=== PATIENT | female | born 1995 | race Caucasian/White ===

== ENCOUNTER → 2016-05-13 | Outpatient (CLI) | payer BC ==
[~2016-05-13] MED LIST: PRED20TA PO; VLT/75 PO; ZLF/50 PO
--- NOTE | 2016-05-13 18:28 | DIAGNOSTIC IMAGING REPORT ---
LUMBAR SPINE MRI HISTORY: Low back pain. LUMBAR RADICULOPATHY TECHNIQUE: Multiplanar multisequence MRI of the lumbar spine was performed without the use of contrast. COMPARISON: None. FINDINGS: For the purpose of the report the L5-S1 disc space will be located on axial image 23 of 25. Alignment and curvature are intact. No fracture or subluxation. Disc spaces are preserved. The conus terminates at the L1 level. Paraspinal soft tissues are unremarkable. L1-L2: No significant central canal or neural foraminal narrowing. L2-L3: No significant central canal or neural foraminal narrowing. L3-L4: No significant central canal or neural foraminal narrowing. L4-L5: Tiny broad-based posterior disc bulge without significant central canal or neural foraminal narrowing. L5-S1: No significant central canal or neural foraminal narrowing. IMPRESSION: 1. No disc herniations. 2. No significant central canal or neural foraminal narrowing. 3. Tiny broad-based posterior disc bulge at L4-L5. 4. No fracture or subluxation. Electronically signed by: Mike Lal M.D. 05/13/2016 6:26 PM Dictated Date/Time: 05/13/2016 6:22 PM
== END | disposition home or self-care (01) ==
LOC: C.MRI 17:40
PROVIDERS: ATTEND Family Medicine
DX: M54.16 Radiculopathy, lumbar region (principal)

== ENCOUNTER → 2016-08-20 | Outpatient (CLI) | payer BC ==
[~2016-08-20] MED LIST changes: +PRENTAB26 PO
[2016-08-20 18:25] LABS: URINE APPEARANCE CLEAR (CLEAR); URINE BILIRUBIN NEG (NEG); URINE COLOR YELLOW; URINE NITRITE NEG (NEG); URINE SPECIFIC GRAVITY 1.023 (1.000-1.030); UROBILINOGEN NEG (NEG)
[2016-08-20 18:33] LABS: MANUAL MICROSCOPIC REQUIRED? NO; REVIEW REQ? NO
== END | disposition home or self-care (01) ==
LOC: C.LABSPEC 17:42
PROVIDERS: ATTEND Obstetrics & Gynecology
DX: Z34.81 Encounter for supervision of other normal pregnancy, first trimester (principal)

== ENCOUNTER → 2016-08-29 | Outpatient (CLI) | payer BC ==
[2016-08-29 16:35] LABS: BASO % 0.1 %; BASO ABS # 0.01 K/uL (0-0.2); COMPLETE YES; EOS % 1.7 %; HEMATOCRIT 35.8 % (37-47); IG% 0.3 %; LYMPH % 33.9 %; LYMPH ABS # 2.64 K/uL (1.2-3.4); MEAN CELL VOLUME 81.9 fL (80-100); MEAN CORPUSCULAR HEMOGLOBIN 27.9 pg (25-34); MEAN CORPUSCULAR HGB CONC 34.1 g/dl (32-36); MEAN PLATELET VOLUME 11.1 fL (7.4-10.4); MONO % 7.2 %; NEUT % 56.8 %; PLATELET COUNT 278 K/uL (130-400); RED BLOOD COUNT 4.37 M/uL (4.2-5.4); WHITE BLOOD COUNT 7.79 K/uL (4.8-10.8)
[2016-09-01 03:10] LABS: CHLAMYDIA TRACH RNA*** NOT DETECTED (NOT DETECTED); GC (NEIS GONORRHOEAE)RNA** NOT DETECTED (NOT DETECTED)
== END | disposition home or self-care (01) ==
LOC: C.LAB1850 14:52
PROVIDERS: ATTEND Obstetrics & Gynecology
DX: Z34.81 Encounter for supervision of other normal pregnancy, first trimester (principal)

== ENCOUNTER → 2016-10-17 | Outpatient (CLI) | payer BC ==
[2016-10-17 18:34] LABS: GTGD 50 Grams
[2016-10-22 14:51] LABS: AFP CONCENTRATION 42.8 NG/ML; AFP MULTIPLE OF MEDIAN 1.29; AFPTS GESTATIONAL AGE 16.3 WEEKS; AFPTS INSULIN DEP DIABETIC? NO; AFPTS MATERNAL WT 140 LBS; ALPHA-FETOPROTEIN RACE HISPANIC=H; ESTRIOL MULTIPLE OF MEDIAN 0.99; HISTORY OF NTD NO; INHIBIN A 177 PG/ML; INHIBIN A MOM 1.06; REPEAT SAMPLE? NO; hCG MULTIPLE OF MEDIAN 1.47
== END | disposition home or self-care (01) ==
LOC: C.LAB1850 15:53
PROVIDERS: ATTEND Obstetrics & Gynecology
DX: Z34.82 Encounter for supervision of other normal pregnancy, second trimester (principal)

== ENCOUNTER → 2016-12-31 | Outpatient (CLI) | payer BC ==
[~2016-12-31] MED LIST changes: -PRENTAB26 PO
[2016-12-31 17:24] LABS: HEMATOCRIT 32.4 % (37-47)
[2016-12-31 18:06] LABS: GTGD 50 Grams
[2016-12-31 18:43] LABS: URINE APPEARANCE CLEAR (CLEAR); URINE BILIRUBIN NEG (NEG); URINE COLOR YELLOW; URINE EPITHELIAL CELL AUTO >30 /lpf (0-5); URINE NITRITE NEG (NEG); URINE SPECIFIC GRAVITY 1.011 (1.000-1.030); UROBILINOGEN NEG (NEG)
[2016-12-31 18:50] LABS: MANUAL MICROSCOPIC REQUIRED? NO; REVIEW REQ? NO
== END | disposition home or self-care (01) ==
LOC: C.LAB1850 15:54
PROVIDERS: ATTEND Obstetrics & Gynecology
DX: Z34.83 Encounter for supervision of other normal pregnancy, third trimester (principal)

== ENCOUNTER 2017-02-17 20:02 | Outpatient (CLI) | payer BC ==
[~2017-02-17] VITALS: Ht 166.4 cm; Wt 80.9 kg
[2017-02-17] MEDS ORDERED: PRENTAB26 PO (20:43)
[2017-02-17 20:44] VITALS: Ht 166.4 cm; Wt 80.9 kg
== END 2017-02-17 20:55 | disposition home or self-care (01) ==
LOC: C.LD 20:02 → C.OPB 20:02
PROVIDERS: ATTEND Obstetrics & Gynecology
DX: O26.893 Other specified pregnancy related conditions, third trimester (principal); Z3A.34 34 weeks gestation of pregnancy

== ENCOUNTER → 2017-02-28 | Outpatient (CLI) | payer BC ==
[~2017-02-28] MED LIST changes: -PRED20TA PO; +PRENTAB26 PO; -VLT/75 PO; -ZLF/50 PO
== END | disposition home or self-care (01) ==
LOC: C.LABSPEC 16:06
PROVIDERS: ATTEND Obstetrics & Gynecology
DX: Z34.83 Encounter for supervision of other normal pregnancy, third trimester (principal)

== ENCOUNTER 2017-03-23 02:56 | Inpatient (IN) | payer BC ==
[~2017-03-23] VITALS: Ht 165.1 cm; Wt 87.3 kg
[2017-03-23] MEDS ORDERED: LACTATED RINGER'S 1000ML 1,000 ML IV SCH ×2 (03:30→08:01)
[2017-03-23 03:37] VITALS: Ht 165.1 cm; Wt 87.3 kg
[2017-03-23] MEDS ORDERED: EpHEDrine SULFATE INJ 50 MG/ML AMP ONE (03:45)
[2017-03-23] MEDS ORDERED: FENTANYL 2MCG/ML ROPIV 1.25MG/ML 100ML BAG EPI ONE (03:45)
[2017-03-23] MEDS ORDERED: BUPIVACAINE 0.25% 30 ML VIAL ONE (03:45)
[2017-03-23] MEDS ORDERED: FENTANYL CITRATE INJ 50 MCG/1 ML 2 ML VIAL ONE (03:46)
[2017-03-23] MEDS: LACTATED RINGER'S 1000ML 1,000 ML IV PRN ×2 (03:54→04:35)
[2017-03-23 04:12] LABS: HEMATOCRIT 32.8 % (37-47); MEAN CELL VOLUME 77.7 fL (80-100); MEAN CORPUSCULAR HEMOGLOBIN 24.9 pg (25-34); MEAN PLATELET VOLUME 10.3 fL (7.4-10.4); PLATELET COUNT 270 K/uL (130-400); RED BLOOD COUNT 4.22 M/uL (4.2-5.4); WHITE BLOOD COUNT 8.06 K/uL (4.8-10.8)
[2017-03-23] MEDS ORDERED: NALOXONE HCL INJ 1 MG in SODIUM CHLORIDE 0.9% 1000ML 1,000 ML IV PRN (04:53)
[2017-03-23] MEDS ORDERED: LACTATED RINGER'S 1000ML 500 ML IV PRN (04:53)
[2017-03-23] MEDS ORDERED: NALBUPHINE HCL INJ 10 MG/ML AMP IV PRN (05:00)
[2017-03-23] MEDS ORDERED: NALOXONE HCL INJ 0.4 MG/1 ML VIAL/CARP IV PRN (05:00)
[2017-03-23] MEDS ORDERED: ONDANSETRON INJ 2 MG/ML 2 ML VIAL IV PRN (05:00)
[2017-03-23] MEDS ORDERED: EpHEDrine SULFATE INJ 50 MG/ML AMP IV PRN (05:00)
[2017-03-23] MEDS ORDERED: PROMETHAZINE HCL INJ 6.25 MG in SODIUM CHLORIDE 0.9% 50ML 50 ML IV PRN (05:00)
[2017-03-23] MEDS ORDERED: DiphenhydrAMINE HCL 50 MG/ML VIAL IV PRN (05:00)
[2017-03-23] MEDS: FENTANYL 2MCG/ML ROPIV 1.25MG/ML 100ML BAG EPI PRN ×2 (05:59→06:53)
[2017-03-23] MEDS ORDERED: OXYTOCIN 30 UNITS/500ML NSS IV ONE (07:19)
[2017-03-23] MEDS ORDERED: BENZOCAINE 20% AER SPR 82.5 GM CAN EXT PRN (08:15)
[2017-03-23] MEDS ORDERED: DIPHTHERIA/TETANUS/PERTUSSIS 0.5 ML SYR/VIAL IM. ONE (08:15)
[2017-03-23] MEDS ORDERED: SUPERCREAM 0.870 % 15GM JAR EXT PRN (08:15)
[2017-03-23] MEDS ORDERED: HYDROCORTISONE ACETATE 25 MG SUPP PR PRN (08:15)
[2017-03-23] MEDS ORDERED: ACETAMINOPHEN 325 MG TAB PO PRN (08:15)
[2017-03-23] MEDS ORDERED: OXYTOCIN 30 UNITS/500ML NSS IV PRN (08:15)
[2017-03-23] MEDS ORDERED: LANOLIN OINT EXT PRN ×2 (08:15)
--- NOTE | 2017-03-23 08:29 | DELIVERY SUMMARY ---
DATE OF OPERATION: 03/23/2017 VAGINAL DELIVERY NOTE PREOPERATIVE DIAGNOSES: 1. Booth intrauterine at term. 2. Spontaneous onset of labor. POSTOPERATIVE DIAGNOSES: Same. PROCEDURE PERFORMED: Spontaneous vaginal delivery, repair of first-degree perineal laceration. SURGEON: Mago Zendejas MD. OCCUPATIONAL THERAPIST AIDE: None. ESTIMATED BLOOD LOSS: 400. FINDINGS: Placenta spontaneous and intact with a 3-vessel cord. SPECIMENS: Cord blood and placenta for hold. COMPLICATIONS: None. DISPOSITION: Stable to the labor and delivery room. DESCRIPTION OF PROCEDURE: Carola is a 22-year-old, 2, para 1, who presented in active labor with spontaneous rupture of membranes. She was admitted, provided with an epidural for pain management and managed expectantly through her labor. I was called when the patient reached complete dilation with an urge to push. She was pushed through her second stage of labor, which was relatively brief, after which I gowned and gloved for delivery. The patient did deliver a viable male infant in an occiput anterior position with no difficulty. The was placed on the maternal abdomen. The cord was noted to be quite long with at least one true knot. The cord was doubly clamped and cut by the father by the father of the baby. The infant was taken to the warmer. The placenta then delivered spontaneously. There was noted to be an abrasion at the posterior fourchette initially. As this was hemostatic, I was not planning to repair it; however, after looking at it, it appeared that it would be more cosmetically appealing if it were repaired. Therefore, I did call this a first-degree laceration and apply an interrupted suture of 3-0 Vicryl at the skin of the perineum to reapproximate this for cosmesis. There were no cervical, vaginal, or other perineal lacerations requiring repair, and the mother and were in stable condition having tolerated delivery well. I attest to the content of the Intraoperative Record and any orders documented therein. Any exception s are noted below.
--- NOTE | 2017-03-23 08:42 | Anesthesia Procedure Note ---
Anesthesia Epidural Removal Nt Date & Time Mar 23, 2017 at 08:42 Vital Signs Pain Intensity: 0.0 Notes Mental Status: alert / awake / arousable, participated in evaluation Nausea / Vomiting: adequately controlled Pain: adequately controlled Airway Patency, RR, SpO2: stable & adequate BP & HR: stable & adequate Hydration State: stable & adequate Neuraxial Anesthesia: was administered Anesthetic Complications: no major complications apparent, pt satisfied with anesthetic care Epidural: removed without complications, with tip intact
[2017-03-23 11:30] VITALS: BP 112/73; PULSE 89; TEMP 36.9; O2SAT 97
[2017-03-23 15:55] VITALS: BP 110/68; PULSE 83; TEMP 36.7; O2SAT 97
[2017-03-23] MEDS: IBUPROFEN 600 MG TAB PO PRN ×2 (16:03→19:54)
[2017-03-23 19:40] VITALS: BP 114/73; PULSE 84; TEMP 36.4; O2SAT 98
[2017-03-23] MEDS: DOCUSATE SODIUM 100 MG CAP PO SCH (19:54)
[2017-03-23] MEDS: OXYCODONE/ACETAMINOPHEN 5-325 TAB PO PRN (21:33)
[2017-03-24] VITALS: BP 119/69; PULSE 84; TEMP 36.5; O2SAT 96
[2017-03-24 04:15] VITALS: BP 103/70; PULSE 76; TEMP 36.8; O2SAT 97
[2017-03-24 07:07] LABS: HEMATOCRIT 28.2 % (37-47)
--- NOTE | 2017-03-24 07:09 | Progress Note ---
Subjective Mar 24, 2017. Subjective conversation w/ patient, physical exam, chart review, lab review Ambulation: ambulating normally Voiding: no voiding problems Passing Gas: Yes Diet Tolerance: Regular Diet Lochia: Moderate Feeding Type: Breast Feeding Pain: controlled Review of Systems Constitutional: No fever, No chills Cardiac: No chest pain Abdomen: No nausea, No vomiting Female : No dysuria Objective Vital Signs Date Time Temp Pulse Resp B/P (MAP) Pulse Ox O2 Delivery O2 Flow Rate FiO2 03/24/17 04:15 36.8 76 16 103/70 (81) 97 Room Air 03/24/17 00:00 96 Room Air 03/24/17 00:00 36.5 84 20 119/69 (86) 96 Room Air 03/23/17 19:40 36.4 84 18 114/73 (87) 98 Room Air 03/23/17 15:55 97 Room Air 03/23/17 15:55 36.7 83 18 110/68 (82) 97 Room Air 03/23/17 11:30 36.9 89 20 112/73 (86) 97 Room Air 03/23/17 11:30 97 Room Air Physical Exam General Appearance: WELL-APPEARING, WD/WN, NO APPARENT DISTRESS Respiratory/Chest: lungs clear, normal breath sounds, no respiratory distress Cardiovascular: regular rate, rhythm, no gallop, no JVD Abdomen: normal bowel sounds, soft Fundus: Firm, Tender (appropriately tender), Relation to Umbilicus (U at level of Umb) Extremities: normal range of motion, normal inspection, no pedal edema Laboratory Results Last 24 Hours Test 03/24/17 06:33 Assessment and Plan Day#: 1 Continue Routine Care: O - / GBS - / RI Hbg 10.5, today 8.9. Pt's pain is controlled Encourage ambulation, , continue motrin/tylenol Continue routine post care TATIANA RUTH PGY 1 FMR Resident Physician Supervision Note: I interviewed and examined the patient. Discussed with Dr. Ruth and agree with findings and plan as documented in the note. Any exceptions or clarifications are listed here: [None] Documented By: Mago Zendejas Resident Tracking Resident Involvement: Resident Care Provided Care Provided: OB Delivery
[2017-03-24 07:16] VITALS: BP 106/64; PULSE 80; TEMP 36.6; O2SAT 97
[2017-03-24] MEDS: IBUPROFEN 600 MG TAB PO PRN ×2 (09:13→20:07)
[2017-03-24] MEDS: PRENATAL VITAMIN TAB PO SCH (09:13)
[2017-03-24] MEDS: DOCUSATE SODIUM 100 MG CAP PO SCH ×2 (09:13→20:07)
[2017-03-24] MEDS: OXYCODONE/ACETAMINOPHEN 5-325 TAB PO PRN ×2 (10:26→22:01)
[2017-03-24 15:15] VITALS: BP 113/75; PULSE 79; TEMP 36.9
[2017-03-24] MEDS ORDERED: GUAIFENESIN SUGAR FREE 100 MG/5 ML UDC PO PRN (19:45)
[2017-03-24 22:27] LABS: INFLUENZA A PCR Neg for Influ A (NEG); INFLUENZA B PCR Neg for Influ B (NEG)
[2017-03-25 00:06] VITALS: BP 115/79; PULSE 76; TEMP 36.7
[2017-03-25] MEDS: PRENATAL VITAMIN TAB PO SCH (07:14)
[2017-03-25] MEDS: DOCUSATE SODIUM 100 MG CAP PO SCH (07:14)
[2017-03-25] MEDS: IBUPROFEN 600 MG TAB PO PRN ×2 (07:15→11:38)
[2017-03-25 07:30] VITALS: BP 114/76; PULSE 82; TEMP 36.6; O2SAT 96
--- NOTE | 2017-03-25 07:48 | Progress Note ---
Subjective Mar 25, 2017. Subjective conversation w/ patient, physical exam, chart review, lab review Ambulation: ambulating normally Voiding: no voiding problems Passing Gas: Yes Diet Tolerance: Regular Diet Lochia: Moderate Feeding Type: Breast Feeding Pain: controlled Review of Systems Respiratory: No shortness of breath, No dyspnea on exertion Cardiac: No chest pain Abdomen: No nausea, No vomiting Female : No dysuria Objective Vital Signs Date Time Temp Pulse Resp B/P (MAP) Pulse Ox O2 Delivery O2 Flow Rate FiO2 03/25/17 00:09 Room Air 03/25/17 00:06 36.7 76 18 115/79 (91) Room Air 03/24/17 15:15 Room Air 03/24/17 15:15 36.9 79 18 113/75 (88) Room Air 03/24/17 10:04 Room Air Physical Exam General Appearance: WELL-APPEARING, WD/WN, NO APPARENT DISTRESS Respiratory/Chest: lungs clear, normal breath sounds, no respiratory distress Cardiovascular: regular rate, rhythm, no gallop, no murmur Abdomen: normal bowel sounds, soft Fundus: Firm, Tender (appropriately tender), Relation to Umbilicus (1 below U) Extremities: non-tender, normal inspection, no pedal edema Laboratory Results Last 24 Hours Test 03/24/17 20:05 Influenza Type A (RT-PCR) Neg for Influ A Influenza Type A Antigen Neg for Influ A Influenza Type B Antigen Neg for Influ B Influenza Type B (RT-PCR) Neg for Influ B Assessment and Plan Day#: 2 Continue Routine Care: O - / GBS - / RI Hbg 10.5, yesterday 8.9. Pt's pain is controlled Encourage ambulation, , continue motrin/tylenol Continue routine post care. Anticipate discharge today. TATIANA RUTH PGY 1 FMR Resident Physician Supervision Note: I was present with Dr. Ruth during the history and exam. I discussed the case with the resident and agree with the findings and plan as documented in the note. Any exceptions or clarifications are listed here: PPD#2, doing well. Discharge home today. Documented By: Loretta Zepeda Resident Tracking Resident Involvement: Resident Care Provided Care Provided: OB Delivery
--- NOTE | 2017-03-25 07:49 | Discharge Instructions ---
Discharge Instructions Date of Service Mar 25, 2017. Admission Reason for Admission: LABOR Discharge Discharge Diagnosis / Problem: Spontaneous vaginal delivery Discharge Goals Goal(s): Routine recovery after delivery Medications Continue Dispensed Medications: supercream, dermaplast, tucks, lansinoh Activity Recommendations Activity Limitations: per Instructions/Follow-up section . Instructions / Follow-Up Instructions / Follow-Up ACTIVITY RECOMMENDATIONS: * Gradual return to full activity over the next 2-3 weeks. * No lifting - nothing heavier than baby over the next 2-3 weeks. * Do not engage in vigorous exercise, sexual activity or sports until cleared by your physician. * Do not drive or operate any motorized equipment until cleared by your physician. * You may shower/bathe daily. MEDICATIONS: For discomfort or pain, you may use Acetaminophen (Tylenol), Ibuprofen (Advil), or Naproxen (Aleve) following the package directions. For constipation you may use Colace following the package directions. BREAST CARE: If you are not breast feeding: * Wear a supportive bra 24 hours a day for one to two weeks. * Avoid stimulating your breasts and nipples as much as possible during the first few weeks after delivery. * When taking a shower, have the warm water hit your back, not breasts. * When your breasts feel full, apply ice packs. Usually three to four times a day helps ease the discomfort. * Take a mild pain medication (Tylenol / Motrin) when you are uncomfortable. If breast feeding: * Use breast milk to lubricate nipples. Lansinoh cream may be used for sore nipples. You do not need to remove cream prior to breast feeding. If using a different brand of cream, check the label for directions regarding removal of cream prior to nursing. * Wear a supportive bra. * If having problems with breasts or breast feeding, call a bilingual sales consultant or your health care provider. EPISIOTOMY CARE: After delivery, if you have an episiotomy (stitches), the following steps will ease discomfort and aid healing. * For the first 24 hours after delivery, place ice packs next to your episiotomy to help reduce swelling. * After the first 24 hour-period, sitz baths, either portable or in the tub, are suggested. A shower with a shower arm sprayed over the episiotomy may be comforting. * Nuvia care should be done after each voiding and bowel movement. Squirt warm water from a plastic bottle over the perineum (region of the body between the anus and urinary opening) and pat dry. * Use Dermoplast to ease discomfort. Shake container. [place] directly over the episiotomy. Place a Tucks on a clean sanitary pad next to your episiotomy. SPECIAL CARE INSTRUCTIONS: When you are discharged from the hospital, it is important for you to follow the instructions listed below: * During the first week at home, you should be able to care for yourself and your baby. In addition, the usual light household activities are encouraged. * Limit your activities to the way you feel. Do not try to clean the house or move furniture. Be sensible. * If you actively engage in sports and have done so up until the time of your delivery, you may resume these activities as soon as you feel able. This may take up to one month or even longer. Use good judgment. * Continue to take your vitamins for at least six weeks after the of your baby. * Your diet need not be limited unless you were on a special diet before your delivery. Breast-feeding mothers need around 2500 calories per day and at least 64-80 ounces of fluid per day (8 to 10 glasses). * You should eat foods from the four major food groups. Crash diets or fad diets are to be avoided. Eating lean meats, fresh fruits and vegetables, low-fat dairy products, high fiber foods and a regular exercise program, will help you get back to your pre- weight without putting your health at risk. * Constipation is sometimes a problem after delivery. Take a mild laxative as needed. If breast feeding, Milk of Magnesia is acceptable to use. You may use a suppository or Fleets enema if no episiotomy. * A daily shower or tub bath is suggested. Be sure to thoroughly and gently dry the perineum. * A bloody vaginal discharge will usually continue until around four weeks post . A small amount of bleeding may continue for as long as six weeks. Vaginal discharge changes from the bright red bleeding after delivery to pink then brownish and finally yellowish-pink before becoming white and disappearing. * Bleeding may increase with activity. Your first period may come in 4-8 weeks. If you are breast feeding, your period may be delayed even longer. * [place] (sex) can begin whenever both you and your partner feel comfortable and do not have any form of genital infection. It is recommended that you wait at least six weeks for internal and external healing to occur. If you have questions, please talk to your health care practitioner. A condom should be used to prevent infection and . * Foreplay, gentle intercourse and lubrication is very important the first several times to prevent pain. A water-based lubricant such as K-Y jelly or Astroglide may be used. * If you have RH negative blood and your baby is RH positive, you will receive RHOGAM by injection prior to discharge. The nurse will give you a card to keep with you that has the date and place that you received RHOGAM after delivery. * During your care, you had a Rubella screen done to check for the presence of rubella antibodies in your blood. If your test was negative, you will receive a Rubella vaccine prior to discharge. This vaccine may cause a fever, soreness at the injection site and flu-like symptoms. If these symptoms persist, notify your health care practitioner. is not advised for one month after a Rubella vaccine. * Verbalizes understanding of car seat law as reviewed with patient nursing. * Car Seat hand-out given and reviewed with patient by nursing. * Shaken baby information reviewed with patient by nursing. Call you doctor if: * Heavy bleeding (saturating several pads an hour) or passing clots the size of your fist. * A fever >101 degrees F (38.3 degrees C) on two occasions four hours apart and /or chills. * Unusual pain in the pelvic or vaginal areas. * "Baby Blues" lasting longer than two weeks. If you have any questions or concerns, call your health care practitioner at . FOLLOW UP VISIT: * Please call the office at to schedule a 6 week examination. It is important you keep this appointment. It is important for you to make arrangements for either yearly or twice yearly check-ups thereafter. Current Hospital Diet Patient's current hospital diet: Regular OB Diet Discharge Diet Recommended Diet: Regular Diet Pending Studies Studies pending at discharge: no Medical Emergencies . Who to Call and When: Medical Emergencies: If at any time you feel your situation is an emergency, please call 911 immediately. . Non-Emergent Contact Non-Emergency issues call your: Primary Care Provider . . "Provider Documentation" section prepared by Poonam Ruth. . VTE Core Measure Inpt VTE Proph given/why not?: Treatment not indicated
[2017-03-25 12:40] VITALS: BP_DIAS 76; PULSE 82; TEMP 36.6
== END 2017-03-25 12:40 | disposition home or self-care (01) | DRG 775 ==
LOC: C.LD 02:56 → C.OPB 02:56 → C.LD 03:31 → C.OBG 11:04
PROVIDERS: ADMIT Obstetrics & Gynecology; ATTEND Obstetrics & Gynecology
PROC: 0HQ9XZZ Repair Perineum Skin, External Approach (ICD-10-PCS; principal; 2017-03-23)
PROC: 10E0XZZ Delivery of Products of Conception, External Approach (ICD-10-PCS; principal; 2017-03-23)
DX: O70.0 First degree perineal laceration during delivery (principal); Z37.0 Single live birth; Z3A.39 39 weeks gestation of pregnancy

== ENCOUNTER 2024-06-03 04:12 | Inpatient (IN) ==
[2024-06-03] MEDS ORDERED: LIDOCAINE 1% LOCAL 20 ML VIAL INFIL PRN (04:45)
--- NOTE | 2024-06-03 04:55 | History & Physical Report ---
Date of Service June 03, 2024 Assessment & Plan (1) Insulin controlled gestational diabetes mellitus (GDM) during : Plan: IUP at 36 4/7 weeks in active labor but ctns only every 7-10 minutes with variables with each contraction will get IV access and hydrate and do position changes to alleviate the variables prior to AROM she is requesting epidural analgesia anticipating vaginal if baby tolerates contractions History of Present Illness Primary Care Provider: Ross Molina Patient is a 29 yo female EDC 07/02/24 who presents at 36 4/7 weeks with regular contractions since 1700 yesterday. contractions are now every 6-7 minutes and moderated. no bloody show or SPROM. complicated by GDM just started insulin 2 weeks ago. GBS - negative. testing has been reassuring. Allergies Allergy/AdvReac Type Severity Reaction Status Date / Time pollen extracts Allergy Intermediate Verified 05/31/24 14:25 Home Medications Medication Instructions Recorded Confirmed Type ondansetron HCl 4 mg tablet 4 mg PO Q6H PRN nausea and 11/17/23 05/31/24 Rx vomiting #30 tabs acetone (urine) test (Ketone Urine #50 ea 12/02/23 05/31/24 Rx Test strips) blood sugar diagnostic (OneTouch #150 ea 12/02/23 05/31/24 Rx Verio test strips) blood-glucose meter (OneTouch #1 ea 12/02/23 05/31/24 Rx Verio Reflect Meter) lancets 33 gauge (OneTouch Delica #150 ea 12/02/23 05/31/24 Rx Plus Lancet) ondansetron 4 mg disintegrating 4 mg PO Q6H PRN nausea and 03/27/24 05/31/24 Rx tablet vomiting #15 tabs pen needle, diabetic 32 gauge x #50 ea 05/21/24 05/31/24 Rx 5/32" (BD Ultra-Fine Candy Pen Needle) breast pump #1 ea 05/31/24 05/31/24 Rx Patient History Medical History Cellulitis of ear Gestational diabetes Positive PPD Varicella vaccination Palpitation Diaphoresis Adverse drug reaction Mastitis, left, acute Surgical History History of eyelid surgery S/P wisdom tooth extraction Family History Father Diabetes Denies family history of Ovarian cancer Prostate cancer Myocardial infarction Breast cancer Colorectal cancer Social History Smoking Status: Never smoker Do You Dip or Chew Tobacco: No; Hx Alcohol Use: No Hx Substance Use: No Preferred Language: Sammarinese Communication Ability: Effective Real Estate Valuer Required: No Beliefs That Will Affect Care: None marital status: marital status details: Willy Huffman (33) [phone] Current Living Situation: Spouse and Family Current Living Situation Comment: lives with spouse, 3 children and dogs current occupational status: employed current occupation: [employer] Feels Safe at Home: Yes Assistive Devices: None Review of Systems All systems reviewed & are unremarkable except as noted in HPI & below Physical Exam Constitutional: WD/WN, vitals as above Psychiatric: A+Ox3, euthymic affect Genitourinary: OB Exam Abdomen: + vertex and + regular contractions (7-10 minutes apart) Manual OB Exam: + cervical dilation 7 cm, + cervical effacement 90% and + station -2 OB Exam Monitor Tracing: + external FHT monitor used, + external uterine monitor used, + category II and + variable decelerations recurrent (precedes each contraction to 90 bpm) Code Status & VTE Plan VTE Prophylaxis Plan VTE Prophylaxis will be ordered: No Coding Level of Care Code 64076 INT INP/OBS CARE 1/40MIN Diagnoses Insulin controlled gestational diabetes mellitus (GDM) in third trimester O24.414 Trimester: third trimester (1) Insulin controlled gestational diabetes mellitus (GDM) during Trimester: third trimester Qualified Code(s): O24.414 - Gestational diabetes mellitus in , insulin controlled
[2024-06-03] MEDS: SODIUM CHLORIDE 0.9% 1,000 ML IV SCH (05:00)
[2024-06-03] MEDS: NALOXONE HCL 1 MG in SODIUM CHLORIDE 0.9% 1,000 ML IV PRN (05:00)
[2024-06-03 05:25] LABS: Hematocrit (blood only) 31.5 % (37.0-47.0); Hemoglobin 10.4 g/dl (12.0-16.0); Mean Corpuscular Hemoglobin 24.4 pg (25.0-34.0); Mean Corpuscular Volume 73.8 fL (80.0-100.0); Mean Platelet Volume 10.5 fL (9.4-12.4); Platelet Count 256 K/uL (130-400); RDW Coefficient of Variation 15.5 % (11.5-14.5); RDW Standard Deviation 40.8 fL (36.4-46.3); Red Blood Count 4.27 M/uL (4.20-5.40); White Blood Count 9.88 K/ul (4.8-10.8)
[2024-06-03] MEDS ORDERED: fentANYL 2 MCG/ML BUPIVacaine 0.125%-NSS 100ML BAG EPI PRN (05:25)
[2024-06-03] MEDS ORDERED: NALBUPHINE HCL INJ 10 MG/ML AMP IV PRN (05:25)
[2024-06-03] MEDS ORDERED: ePHEDrine sulfate 50 MG/ML AMP IV PRN (05:25)
[2024-06-03] MEDS ORDERED: ONDANSETRON INJ 2 MG/ML 2 ML VIAL IV PRN (05:25)
[2024-06-03] MEDS ORDERED: SODIUM CHLORIDE 0.9% PF INJ 10 ML VIAL EPI PRN (05:25)
[2024-06-03] MEDS ORDERED: NALOXONE HCL 0.4 MG/1 ML VIAL/CARP IV PRN (05:25)
[2024-06-03] MEDS ORDERED: LIDOCAINE 2% MPF LOCAL 5 ML VIAL EPI PRN (05:25)
[2024-06-03] MEDS ORDERED: fentaNYL citrate PF 100 MCG/2 ML VIAL EPI PRN (05:25)
[2024-06-03] MEDS ORDERED: ROPIVACAINE 0.5% PF 5 MG/ML 20 ML VIAL EPI PRN (05:25)
[2024-06-03] MEDS ORDERED: diphenhydrAMINE 50 MG/ML VIAL IV PRN (05:25)
[2024-06-03] MEDS ORDERED: BUPIVACAINE 0.25% PF 30 ML VIAL EPI PRN (05:25)
--- NOTE | 2024-06-03 05:26 | Anesthesiology Consultation ---
Date of Service June 03, 2024 Assessment & Plan ASA ASA3 Proposed Anesthesia Anesthesia Type: Labor Epidural Risk / Benefits Reviewed With: PT / POA / Parent / Guardian, Accepts Plan and Informed Consent Obtained History Allergies Allergy/AdvReac Type Severity Reaction Status Date / Time pollen extracts Allergy Intermediate Verified 05/31/24 14:25 Medications Home Medications Medication Instructions Recorded Confirmed Last Taken ondansetron HCl 4 mg tablet 4 mg PO Q6H PRN nausea and 11/17/23 05/31/24 Unknown vomiting #30 tabs acetone (urine) test (Ketone Urine #50 ea 12/02/23 05/31/24 Unknown Test strips) blood sugar diagnostic (OneTouch #150 ea 12/02/23 05/31/24 Unknown Verio test strips) blood-glucose meter (OneTouch #1 ea 12/02/23 05/31/24 Unknown Verio Reflect Meter) lancets 33 gauge (OneTouch Delica #150 ea 12/02/23 05/31/24 Unknown Plus Lancet) ondansetron 4 mg disintegrating 4 mg PO Q6H PRN nausea and 03/27/24 05/31/24 Unknown tablet vomiting #15 tabs pen needle, diabetic 32 gauge x #50 ea 05/21/24 05/31/24 Unknown 5/32" (BD Ultra-Fine Candy Pen Needle) breast pump #1 ea 05/31/24 05/31/24 Unknown Active Medications Generic Name Dose Route Start Last Admin Trade Name Freq PRN Reason Stop Dose Admin Naloxone HCl 1 mg/ Sodium 1,002.5 mls @ 50 mls/hr 06/03/24 05:25 06/03/24 05:35 Chloride IV 06/04/24 05:24 80 mls/hr .Q20H3M PRN Infusion itching or nausea Past Medical History Medical History Cellulitis of ear Gestational diabetes Positive PPD Varicella vaccination Palpitation Diaphoresis Adverse drug reaction Mastitis, left, acute Exercise / Class Metabolic Activity II 4-5 Yardwork/Stairs/Walk up hill Past Family History Family History Father Diabetes Denies family history of Ovarian cancer Prostate cancer Myocardial infarction Breast cancer Colorectal cancer Past Surgical History Surgical History History of eyelid surgery S/P wisdom tooth extraction Past Anesthesia History No Hx of Anesthesia Complications and No Family Hx of Anesthesia Complications History of PONV No Hx of PONV and No Hx of Motion Sickness Social History Smoking Status: Never smoker Do You Dip or Chew Tobacco: No Hx Alcohol Use: No Hx Substance Use: No Review of Systems denies fever/cough/ colds/ chest pain/ SOB/ MARTIN denies MARTIN Physical Exam Vital Signs Last Vital Signs Temp 36.7 C 06/03/24 05:00 Pulse 82 06/03/24 06:08 BP 101/56 L 06/03/24 06:07 Pulse Ox 100 06/03/24 06:08 ENMT Mouth: no TMJ abnormality and no dentition abnormality Thyromental Distance: > or= 3.5 Finger Breadths Mallampati Class: II Neck neck extension not limited Respiratory normal respiratory effort; no respiratory distress Auscultation: lungs clear to auscultation bilaterally Cardiovascular Rate/Rhythm: regular rate and regular rhythm Neurologic moves all extremities Psychiatric Orientation: alert and oriented x 3 Testing Laboratory Results 06/03/24 05:08 06/03/24 05:10 POC Glucose 123 H
[2024-06-03] MEDS: fentANYL 2 MCG/ML BUPIVacaine 0.125%-NSS 100ML BAG ONE (05:49)
[2024-06-03] MEDS: fentaNYL citrate PF 100 MCG/2 ML VIAL ONE (05:51)
[2024-06-03] MEDS: LIDOCAINE 2%/EPINEPHRINE 1:200,000 20 ML PF ONE (05:52)
[2024-06-03] MEDS: BUPIVACAINE 0.25% PF 30 ML VIAL ONE (05:52)
[2024-06-03] MEDS: ePHEDrine sulfate 50 MG/ML AMP ONE (05:55)
[2024-06-03] MEDS: fentaNYL citrate PF 100 MCG/2 ML VIAL EPI STA (05:56)
[2024-06-03] MEDS: SODIUM CHLORIDE 0.9% PF INJ 10 ML VIAL ONE (05:56)
[2024-06-03] MEDS: BUPIVACAINE 0.25% PF 30 ML VIAL EPI STA (06:01)
[2024-06-03] MEDS: LIDOCAINE 2%/EPINEPHRINE 1:200,000 20 ML PF EPI STA (06:01)
[2024-06-03] MEDS: SODIUM CHLORIDE 0.9% PF INJ 10 ML VIAL EPI STA (06:02)
[2024-06-03] MEDS ORDERED: OXYTOCIN 30 UNITS/NSS 30 UNITS/500 ML BAG IV PRN (07:03)
[2024-06-03] MEDS ORDERED: ACETAMINOPHEN 325 MG TAB PO PRN (08:46)
[2024-06-03] MEDS ORDERED: HYDROCORTISONE ACETATE 25 MG SUPP PR PRN (08:46)
[2024-06-03] MEDS ORDERED: bisacodyL 10 MG SUPP PR PRN (08:46)
[2024-06-03] MEDS ORDERED: oxyCODONE/ACETAMINOPHEN 5mg/325mg TAB PO PRN (08:46)
[2024-06-03] MEDS: OXYTOCIN 30 UNITS/NSS 30 UNITS/500 ML BAG IV PRN ×2 (08:55→12:03)
--- NOTE | 2024-06-03 09:02 | Delivery Summary ---
Vaginal Delivery Summary Date of Service June 03, 2024 Vaginal Delivery Summary and 1st Degree LAC Vaginal Delivery Summary: Pre-delivery diagnoses: 29yo @ 36 4/7, spontaneous labor, GDMA2, marginal cord insertion, rubella non immune, Rh neg Post-delivery diagnoses: same Procedure: spontaneous vaginal delivery Surgeon: Loretta Zepeda DO Complications: none Findings: Viable male . Apgars: 8/9. Weight pending, please see nursery records Estimated QBL: 464ml Description of delivery: The patient progressed to complete with epidural anesthesia. She then began to push. She spontaneously vaginally delivered a viable from the cephalic presentation. The head delivered in EDY position. The anterior shoulder delivered, followed by the posterior shoulder, followed by the body. The baby was placed on mother's abdomen and a spontaneous cry was heard. Delayed cord clamping was employed, and the cord was doubly clamped and cut. Cord blood was obtained. The cord avulsed during placental delivery, and then the placenta was delivered via manual extraction with a 3- vessel cord. The uterus and vagina were swept of clots and debris. IV pitocin was given. The uterus became firm. The cervix, vagina, and perineum were inspected and a first degree perineal laceration was noted, did not require repair. Excellent hemostasis was observed. The mother and baby are recovering in stable and good condition in the room. Sponge and instrument counts were correct x 2. Loretta Zepeda DO [facility] Vaginal Delivery Charge Vaginal Delivery Codes: 99715 global code for the antepartum, delivery, and post- Delivery Type Details: and 1st Degree LAC
[2024-06-03] MEDS: ceFAZolin 1000MG 1,000 MG/7.5 ML SYR IV SCH (09:42)
--- NOTE | 2024-06-03 10:18 | Anesthesia Procedure Note ---
Date of Service June 03, 2024 Anesthesia Post Epidural Note Vital Signs Vital Signs: Temp Pulse Resp BP Pulse Ox 36.5 C 100 H 18 108/64 90 06/03/24 08:33 06/03/24 10:13 06/03/24 09:06 06/03/24 10:13 06/03/24 08:42 Notes Mental Status: alert / awake / arousable and participated in evaluation Nausea / Vomiting: adequately controlled Pain: adequately controlled Airway Patency, RR, SpO2: stable & adequate BP & HR: stable & adequate Hydration State: stable & adequate Neuraxial Anesthesia: was administered and sensory block is resolving Anesthetic Complications: no major complications apparent Epidural: Removed without complications and With tip intact
[2024-06-03] MEDS: DIPHTHER/TETAN/PERTUS Vaccine (Tdap, Adol/Adult) 0.5mL IM ONE (10:38)
[2024-06-03] MEDS: BENZOCAINE 20% SPRY 85 APPLN/85 GM CAN EXT PRN (11:14)
[2024-06-03] MEDS: IBUPROFEN 600 MG TAB PO PRN (13:42)
--- NOTE | 2024-06-03 19:24 | Communication Note ---
Date of Service: June 03, 2024 Asked to see patient due to persistent heavy weak left leg. Epidural off simce about 9am - right leg feels normal and has normal strength - has started to be able to wiggle toes in past couple hours. No problems with bowel or bledder function. Explained to patient that one sided nature of symptoms makes it less likely to be from the epidural, and since she has shown some signs of improvement since this afternoon I believe it will continue to get better. Asked her to be very careful if getting out of bed in mean time, and to let us know in the morning if not continuing to improve.
[2024-06-03] MEDS: DOCUSATE SODIUM 100 MG CAP PO SCH (20:33)
[2024-06-03] MEDS: ACETAMINOPHEN 325 MG TAB PO PRN (23:55)
--- NOTE | 2024-06-04 07:48 | Obstetrical Progress Note ---
Date of Service June 04, 2024 Assessment & Plan (1) Encounter for assessment: Plan: Patient is PPD 1 s/p and doing well - Eating well, voiding well, ambulating well - vitals reviewed and within normal limits - pain well controlled with analgesics - OOB, ambulation, diet progression as tolerated - Blood type: O-, GBS neg, rubella equivocal - Plan to discharge today if left leg numbness resolves, otherwise d/c tomorrow - After discharge, 6 week follow up with OBGYN Admission and Anticipated Discharge Date Admission Date: June 03, 2024 Supervising Physician Co-Signing Physician Notes Resident Physician Supervision Note: I interviewed and examined the patient. Discussed with Dr. White and agree with findings and plan as documented in the note. Any exceptions or clarifications are listed here: PPD#1 doing well. Has left leg numbness - is able to bear weight, is using a walker to feel more sturdy. Anesthesia saw yesterday. Pt notes she felt very numb in left leg early with epidural. Pushed for delivery with 3 contractions. Discussed that I expect this will likely improve over time - will ask PT to evaluate today, to help her get moving. Will stay until tomorrow to work on independent movement and to monitor for improvement in sensation in that leg. Documented By: Loretta Zepeda, DO Subjective 29 yo post- day 1 s/p Ambulation: Ambulating w/ walker due to continued left leg numbness s/p /epidural Voiding: no voiding problems Passing Gas:: Yes Diet Tolerance:: regular diet Lochia:: Small Feeding Type:: breast feeding Current Pain Level:5/10 Resting comfortably this AM in NAD. Denies CARROLL, CP, SOB, N/V/D, LE pain/swelling. Physical Exam Physical Exam: General: patient resting comfortably, NAD, non-toxic in appearance, answers questions appropriately. Skin: warm, dry, intact HEENT: NC/AT, anicteric sclera, conjunctiva without injection, moist mucus membranes. Heart: +S1/S2, regular, no m/r/g Lungs: equal air entry bilaterally, no rales/rhonchi/wheezes Abd: +BS, soft, NT/ND, uterine fundus firm at umbilicus Ext: warm, no clubbing/cyanosis or edema. L. leg paresthesia/numbness Neuro: nonfocal, speech intact, no facial droop, moving all extremities. Results & Data Vital Signs (Past 12 Hours) Vital Signs Temp Pulse Resp BP Pulse Ox O2 Del Method 06/04/24 03:00 36.6 C 77 20 101/63 98 Room Air 06/03/24 23:30 36.7 C 79 16 110/64 99 Room Air Resident Activity Tracking Resident Involvement: Resident Care Provided Care Provided: OB Delivery
[2024-06-04] MEDS: CALCIUM CARBONATE 500 MG CHEWABLE TAB PO PRN (08:26)
[2024-06-04] MEDS: PRENATAL VITAMIN 1 TAB PO SCH (08:26)
[2024-06-04 08:27] LABS: Hematocrit (blood only) 27.3 % (37.0-47.0); Hemoglobin 8.5 g/dl (12.0-16.0); Mean Corpuscular Hemoglobin 24.1 pg (25.0-34.0); Mean Corpuscular Hgb Conc 31.1 g/dL (32.0-36.0); Mean Corpuscular Volume 77.3 fL (80.0-100.0); Mean Platelet Volume 10.9 fL (9.4-12.4); Platelet Count 242 K/uL (130-400); RDW Coefficient of Variation 15.9 % (11.5-14.5); RDW Standard Deviation 43.4 fL (36.4-46.3); Red Blood Count 3.53 M/uL (4.20-5.40); White Blood Count 11.04 K/ul (4.8-10.8)
[2024-06-04] MEDS: MEASLES, MUMPS & RUBELLA VIRUS VACCINE (MMR) 0.5ML VIAL SQ ONE (16:08)
[2024-06-04 17:30] VITALS: O2SAT 98
[2024-06-04] MEDS: bisacodyL 5 MG TABEC PO SCH (21:11)
[2024-06-05 06:41] LABS: Hematocrit (blood only) 25.3 % (37.0-47.0); Hemoglobin 8.2 g/dl (12.0-16.0)
--- NOTE | 2024-06-05 06:50 | Obstetrical Progress Note ---
Date of Service June 05, 2024 Assessment & Plan (1) Encounter for assessment: Plan stable, doing well. dc home. f/u 6 wk pp check. instructions reviewed. had rhogam and mmr. Subjective Ambulation: ambulating normally Voiding: no voiding problems Diet Tolerance:: regular diet Lochia:: Small Feeding Type:: breast feeding no issues with ambulation Constitutional: + as per Subjective / HPI Physical Exam Constitutional WD/WN, vitals as above Respiratory normal respiratory effort, lungs clear to auscultation Cardiovascular Rate/Rhythm: regular rate and regular rhythm Gastrointestinal (Abdomen) Inspection/Auscultation: abdomen normal to inspection Percussion/Palpation: abdomen soft Fundus firm 1cm down Musculoskeletal nt calves no edema Neurologic grossly normal Psychiatric A+Ox3, euthymic affect Results & Data Vital Signs (Past 12 Hours) Vital Signs Temp Pulse Resp BP Pulse Ox O2 Del Method 06/04/24 23:40 98.2 F 86 18 119/70 98 Room Air
[2024-06-05 08:20] VITALS: BP 105/63; PULSE 76; RESP 16; TEMP 98.8
== END 2024-06-05 14:30 | disposition home or self-care (01) | DRG 807 ==
LOC: OPB 04:12 → 4S1 04:12 → 4E2 15:25